=== PATIENT | male | born 1955 | race African-American/Black ===

== ENCOUNTER 2017-12-05 13:23 | Emergency (ER) | payer OTHER ==
[2017-12-05 14:35] LABS: Anion Gap 12 mmol/L (10-20); BUN (Urea Nitrogen) 10 mg/dL (8.4-25.7); Calc. Creatinine Clearance 0 mL/min (70-130); Calcium 9.3 mg/dL (7.8-10.44); Carbon Dioxide 23 mmol/L (22-29); Chloride 110 mmol/L (98-107); Estimated GFR-MDRD 87; Glucose 97 mg/dL (70-105); Potassium 4.2 mmol/L (3.5-5.1); Sodium 141 mmol/L (136-145)
== END 2017-12-05 15:40 | disposition home or self-care (01) ==
LOC: NAV ERS 13:23
DX: M79.652 Pain in left thigh (principal); G51.0 Bell's palsy; F17.210 Nicotine dependence, cigarettes, uncomplicated
CPT/HCPCS: 80048; 85379; 99283

== ENCOUNTER 2018-02-17 10:42 | Emergency (ER) | payer OTHER ==
--- NOTE | 2018-02-17 11:46 | RAD ---
THREE VIEWS LEFT FOOT: Indication: Right heel pain with foreign body in the left heel. Comparison: None. FINDINGS: No acute fracture or subluxation is evident. No radiopaque foreign body is noted. There are vascular calcifications with the soft tissues. There is moderate enthesopathic change off of the plantar calca neus. An accessory ossicle is seen adjacent to the cuboid. Lisfranc alignment is preserved. 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 IMPRESSION: No radiopaque foreign body demonstrated. POS: [facility]
== END 2018-02-17 11:30 | disposition home or self-care (01) ==
LOC: NAV ERS 10:42
DX: M79.672 Pain in left foot (principal); F17.210 Nicotine dependence, cigarettes, uncomplicated